=== PATIENT | female | born 1980 | race Caucasian/White ===

== ENCOUNTER → 2017-02-15 | Outpatient (CLI) | payer OTHER ==
[~2017-02-15] VITALS: Ht 162.6 cm; Wt 101.0 kg
[~2017-02-15] MED LIST: GLYBURIDE2.5 MG PO; PRENATAL TABLE1 EAC3 PO; SYNTHROID125 MCG PO
[2017-02-15 09:12] VITALS: BP 120/64
== END | disposition home or self-care (01) ==
LOC: IVINF 08:51
DX: Z31.82 Encounter for Rh incompatibility status (principal); Z3A.28 28 weeks gestation of pregnancy; Z67.11 Type A blood, Rh negative
CPT/HCPCS: 96372; J2790

== ENCOUNTER 2017-05-03 09:05 | Inpatient (IN) | payer OTHER ==
[~2017-05-03] VITALS: Ht 160 cm; Wt 100.7 kg
[2017-05-03 09:54] VITALS: BP 147/74
[2017-05-03 10:36] VITALS: BP 122/70
[2017-05-03 14:04] LABS: POINT-OF-CARE METER ID UU13113675
[2017-05-03 14:31] VITALS: BP 132/75
[2017-05-03 16:08] VITALS: BP 106/54
[2017-05-03 17:36] VITALS: BP 106/55
[2017-05-03 19:09] VITALS: BP 105/48
[2017-05-04 00:19] VITALS: BP 107/69
[2017-05-04 02:59] VITALS: BP 91/52
[2017-05-04 07:00] LABS: EOSINOPHIL (%) 0.3 % (0-5); HEMATOCRIT 25.2 % (36.0-46.0); IMMATURE GRANULOCYTE (%) 0.7 % (0.0-0.7); IMMATURE GRANULOCYTE COUNT 0.1 K/uL; INSTRUMENT ABS NEUTROPHIL CT 8.2 K/uL; LYMPHOCYTE COUNT 1.3 K/uL (1.0-2.8); MCH 28.7 PG (29.0-34.0); MCHC 34.9 G/DL (30.0-36.0); MCV 82.1 FL (83-99); MEAN PLAT.VOLUME 10.3 uM^3 (9.5-12.4); MONOCYTE (%) 6.8 % (3-12); MONOCYTE COUNT 0.7 K/uL (0-0.8); NEUTROPHIL (%) 79.7 % (45-76); NEUTROPHIL COUNT 8.2 K/uL (1.8-6.4); PLATELET COUNT 187 K/uL (156-360); RBC DIS.WIDTH-SD 41.1 % (39-53); RED BLOOD COUNT 3.07 M/uL (3.80-5.20); WHITE BLOOD COUNT 10.3 K/uL (4.1-10.2)
[2017-05-04 07:26] VITALS: BP 114/60
[2017-05-04 10:37] VITALS: BP 119/71
[2017-05-04 14:32] VITALS: BP 108/53
[2017-05-05 07:07] VITALS: BP 116/78
[2017-05-05 22:50] VITALS: BP 127/72
[2017-05-06 07:00] VITALS: BP 122/75
[2017-05-06 15:21] VITALS: BP 133/81
[2017-05-07 07:07] VITALS: BP 132/60
[2017-05-07] MEDS ORDERED: DOCUSATE SODIU100 MG PO (12:39)
[2017-05-07] MEDS ORDERED: IBUPROFEN800 MG PO (12:39)
[2017-05-07] MEDS ORDERED: ENDOCET 5-3251 EACH PO (12:39)
== END 2017-05-07 15:25 | disposition home or self-care (01) | DRG 766 ==
LOC: 2WEST 09:05 → 2SOUTH 09:39 → 2WEST 05-07 15:25
PROVIDERS: Obstetrics & Gynecology Gynecology
PROC: 10D00Z1 Extraction of Products of Conception, Low, Open Approach (ICD-10-PCS; principal; 2017-05-03)
DX: O34.211 Maternal care for low transverse scar from previous cesarean delivery (principal); E03.9 Hypothyroidism, unspecified; O99.284 Endocrine, nutritional and metabolic diseases complicating childbirth; Z37.0 Single live birth; Z3A.39 39 weeks gestation of pregnancy; O24.425 Gestational diabetes mellitus in childbirth, controlled by oral hypoglycemic drugs; O99.214 Obesity complicating childbirth; O36.63X1 Maternal care for excessive fetal growth, third trimester, fetus 1; Z79.84 Long term (current) use of oral hypoglycemic drugs; E66.9 Obesity, unspecified; Z68.39 Body mass index [BMI] 39.0-39.9, adult
CPT/HCPCS: 36415; 82948; 83030; 85025; 86900; 86901; 88307; J0690; J1100; J1885; J2270; J2274; J2405; J2765; J2790; J3010; J7120